=== PATIENT | female | born 1970 | race Caucasian/White ===

== ENCOUNTER → 2024-01-02 16:07 | Outpatient (REF) | payer BC, SELFPAY | LOC: RAD 16:07 | PROVIDERS: ATTENDING PHYSICIAN Obstetrics & Gynecology; FAMILY PHYSICIAN Internal Medicine | DX: N93.9 Abnormal uterine and vaginal bleeding, unspecified (principal) | CPT/HCPCS: 76830; 76856 ==

== ENCOUNTER → 2024-04-17 09:23 | Outpatient (REF) | payer BC, SELFPAY | LOC: RAD 09:23 | PROVIDERS: ATTENDING PHYSICIAN Obstetrics & Gynecology; FAMILY PHYSICIAN Internal Medicine | DX: R93.89 Abnormal findings on diagnostic imaging of other specified body structures (principal); N83.209 Unspecified ovarian cyst, unspecified side | CPT/HCPCS: 76830; 76856 ==

== ENCOUNTER → 2024-09-18 10:31 | Outpatient (REF) | payer BC, SELFPAY | LOC: RAD 10:31 | PROVIDERS: ATTENDING PHYSICIAN Obstetrics & Gynecology; FAMILY PHYSICIAN Internal Medicine | DX: R93.89 Abnormal findings on diagnostic imaging of other specified body structures (principal); N83.209 Unspecified ovarian cyst, unspecified side | CPT/HCPCS: 76830; 76856 ==

== ENCOUNTER → 2024-09-19 15:40 | Outpatient (REF) | payer BC, SELFPAY | LOC: WDC 15:40 | PROVIDERS: ATTENDING PHYSICIAN Obstetrics & Gynecology; FAMILY PHYSICIAN Internal Medicine | DX: Z12.31 Encounter for screening mammogram for malignant neoplasm of breast (principal) | CPT/HCPCS: 77063; 77067 ==